=== PATIENT | female | born 1960 | race Caucasian/White ===

== ENCOUNTER → 2017-12-11 | Outpatient (CLI) | payer OTHER ==
--- NOTE | 2017-12-11 16:44 | KCIC ---
Indication: Bilateral knee pain TECHNIQUE: Multiple views of the bilateral knees COMPARISON: None FINDINGS: Left knee: No acute fracture or dislocation. Early evidence of tricompartmental osteoarthritis. No suprapatellar effusion. Right knee: No acute fracture or dislocation. Early evidence of tricompartmental osteoarthritis. No suprapatellar effusion. IMPRESSION: As above. Electronically signed by: Robb Davis DO (12/11/2017 4:41 PM) [facility]
== END | disposition home or self-care (01) ==
LOC: KCIC 12:28
PROVIDERS: ATTEND Internal Medicine Rheumatology
DX: M17.0 Bilateral primary osteoarthritis of knee (principal)
CPT/HCPCS: 73562